=== PATIENT | male | born 1935 | race Caucasian/White ===

== ENCOUNTER 2016-08-17 00:26 | Day surgery (SDC) | payer MEDICARE, OTHER ==
[~2016-08-17] VITALS: Ht 174 cm; Wt 79.1 kg
[2016-08-17] VITALS (9 sets, daily range): BP systolic 130–150; BP diastolic 52–97; PULSE 74–117; RESP 17–24; O2SAT 94–98
[~2016-08-17 00:26] MED LIST: AMIO200T PO; AMLO5TAB2 PO; ATOR20TA PO; POLY17PO6 PO; RIVA1PAT TRANSDERM; WARF2.5T82 PO
[2016-08-17 12:08] LABS: BASOPHILS % (AUTO) 0.5 % (0-3); EOSINOPHILS % (AUTO) 4.6 % (0-5); MONOCYTES % (AUTO) 9.5 % (4-12); Mean Corpuscular Volume 94.7 fL (81-100); NEUTROPHILS % (AUTO) 70.3 % (40-74); Platelet Count 214 bil/L (150-400)
[2016-08-17] MEDS ORDERED: Flumazenil 0.1 mg/mL 5 mL Inj IV ONE (12:19)
[2016-08-17] MEDS ORDERED: Methohexital 10 mg/mL 50 mL Inj ONE (12:19)
[2016-08-17] MEDS ORDERED: Atropine 1 mg/10 mL (Code) Syringe ONE (12:19)
[2016-08-17 12:23] LABS: INR 2.08 ratio
--- NOTE | 2016-08-17 12:32 | NUR ---
Admit [facility] Admitted to [facility] about 1140. VSS. Denies pain. IV started and labs sent. See EMR for further info and assessment. Procedure and recovery reviewed. Verbalizes understanding. Awaiting MD. Addendum: 08/17/16 at 1237 by BRYANNA CROSS RN PT/INR 29.2/2.4
--- NOTE | 2016-08-17 14:21 | PROCED ---
[address] [address] PROCEDURE NOTE PATIENT: RODY LOJA : 1935 MR#: [id number] ADMIT: 08/17/2016 JOB ID: [id number] DATE OF SERVICE: 08/17/2016 PREOPERATIVE DIAGNOSIS(ES): Atypical atrial flutter. POSTOPERATIVE DIAGNOSIS(ES): Sinus rhythm. PROCEDURE PERFORMED: Direct current cardioversion. SURGEON: Jeff Barkley M.D., electrophysiology attending. SEDATION: 1 mg of Versed and 30 mg Brevital were utilized for appropriate level of sedation. INDICATION: The patient is a pleasant 81-year-old man with recurrent atypical atrial flutter. After discussion of the risks and benefits of cardioversion, he opted to proceed. We confirmed therapeutic INRs for the past four weeks. PROCEDURE DESCRIPTION: The patient was taken to the procedure suite in a fasting state where defibrillator patches were placed in the anterior and posterior positions. After adequate sedation, a 200 joule biphasic synchronized shock was used to convert him to sinus rhythm. He will be allowed to recover and discharged home for close followup. COMPLICATIONS: None. ESTIMATED BLOOD LOSS: None. IMPRESSION: Successful direct current cardioversion. PLAN: 1. Recover and discharge from the [facility]. 2. Increase amiodarone to 200 mg daily. 3. Followup with [facility] in 3-4 weeks. ATTENDING STATEMENT: Jeff Barkley M.D., electrophysiology attending, was present for and supervised/performed all aspects of this procedure.
--- NOTE | 2016-08-17 14:24 | NUR ---
Procedure/Recovery/Discharge Procedure commenced at 1246 with Versed 1mg and Brevital 30mg. Cardioverted with 200J x1 to SR with 1st degree AVB. Pt. awake within 10minutes. Taking po well. Family at bedside. Discharge instructions given, see sheets. Verbalizes understanding. IV discontinued intact. Discharged with family via w/c with all belongings in no acute distress at 1350.
== END 2016-08-17 23:59 | disposition home or self-care (01) ==
LOC: SOUO 00:26
PROVIDERS: ATTEND Internal Medicine Cardiovascular Disease
DX: I48.4 Atypical atrial flutter (principal); G47.30 Sleep apnea, unspecified; Z79.899 Other long term (current) drug therapy; Z79.01 Long term (current) use of anticoagulants; I25.10 Atherosclerotic heart disease of native coronary artery without angina pectoris; E78.5 Hyperlipidemia, unspecified; Z87.891 Personal history of nicotine dependence
CPT/HCPCS: 36415; 80048; 85025; 85610; 92960; 93005; 99152; J2250